=== PATIENT | female | born 1970 | race African-American/Black ===

== ENCOUNTER 2016-10-07 10:39 | Inpatient (IN) | payer BC ==
--- NOTE | ~2016-10-07 | DS ---
Discharge Summary [address] [place]. [address] NAME: JUAN FARIAS : 66 STATUS : DIS IN PAT#: [id number] AGE: 45 ADM/REG DATE : 10/07/16 MR#: [id number] REPORT SERV DATE: 10/16/16 DICTATED BY: DATE: REPORT STATUS : Draft TRANSCRIBED BY: MODL DATE: 10/15/16 ADMISSION DATE: 10/07/2016 DISCHARGE DATE: 10/15/2016 DISCHARGE DIAGNOSES: 1. Gluteal and sacral decubitus stage IV ulcers. 2. Paraplegia. 3. History of transverse myelitis. 4. History of urinary tract infections. 5. Diabetes mellitus type 2. 6. Hypothyroidism. 7. History of deep venous thrombosis with IVC filter. CONSULTING PHYSICIANS: Include: 1. Dr. Tejeda with General Surgery. 2. Dr. Glynn with Infectious Disease. DISCHARGE MEDICATIONS: Include: 1. Imuran 100 mg p.o. b.i.d. 2. Baclofen 20 mg p.o. 4 times daily. 3. Ancef 2 g IV q.8 hours x6 weeks. 4. Pepcid 20 mg p.o. at bedtime. 5. Flonase 2 sprays in each nostril once daily. 6. Eliquis 2.5 mg p.o. b.i.d. 7. Humibid DM 600 mg p.o. daily p.r.n. for cough. 8. Tofranil 25 mg p.o. b.i.d.. 9. Synthroid 112 mcg p.o. before breakfast. 10.Ditropan 10 mg p.o. t.i.d. 11.MiraLAX 1 packet p.o. daily p.r.n. for constipation. 12.Mucinex DM 1 tab p.o. daily maximum strength. 13.Ativan 1 mg p.o. daily p.r.n. for anxiety. 14.Tylenol 500 mg p.o. b.i.d. p.r.n. for pain or fever. 15.Zofran 8 mg p.o. q.12 hours p.r.n. for nausea and vomiting. IMAGING: Includes MRI of the lumbar spine. This demonstrated small gas loculus posterior soft tissues at the L5-S1 level identified. This may be the beginning of a small abscess formation, fusions from L3 through S1 appear intact and normal, canals intact and normal. 3 phase bone scan demonstrated positive exam involving the right femoral head compatible with osteomyelitis. For full H and P, please refer to Dr. Julius Angeles's dictation on 10/07/2016. HOSPITAL COURSE/PROBLEM LIST: 1. Gluteal and sacral stage IV decubitus ulcers. The patient has been receiving IV Ancef since admission. She is afebrile. White blood cell count is 3.8. The patient has been working on her nutrition. Pre-albumin on 10/11/2016 was 6, on 10/13/2016 it was Discharge Summary [address] [address] NAME: JUAN FARIAS : 66 STATUS : DIS IN [facility]#: [id number] AGE: 45 ADM/REG DATE : 10/07/16 MR#: [id number] REPORT SERV DATE: 10/16/16 DICTATED BY: DATE: REPORT STATUS : Draft TRANSCRIBED BY: MODL DATE: 10/15/16 up to 17.8, and today it was 25.2. Dr. Tejeda did a bedside debridement after admission which the patient had some acute blood loss. She was transfused several units of blood. Her H and H have been stable, currently is 10.9 and 37.5. The plan is for the patient to go home with home health and a PICC line and to receive 6 weeks' of IV Ancef per Dr. Glynn. She will follow up with him as an outpatient. She can also follow up with Dr. Tejeda as an outpatient as well. 2. Paraplegia. This is a chronic state induced by transverse myelitis. She will receive wound care at home for #1 as well as assistance with ADLs from Home Health. 3. Recurrent UTIs. The patient has a chronic Parsons catheter which is replaced every 2 weeks by Home Health. If she develops symptoms of UTI including dysuria, hematuria, frequency, and urgency, she is to follow up with her PCP. 4. Diabetes mellitus. The patient's blood glucose, the highest glucose Accu-Chek here was 137. She did not receive any insulin during her hospital course. I discontinued her Accu-Cheks yesterday. She will follow up with her primary care provider for further monitoring and management of this. The patient stated yesterday that she actually was prediabetic and not a type 2 diabetic, so again she can follow up with her primary care provider. No need for medication management at this time. 5. Hypothyroidism. The patient's TSH was 3.210, free T4 was 1.27 on 10/11/2016. We will continue the patient's home dose of Synthroid of 112 mcg p.o. daily and she can follow up with her primary care provider for further monitoring of lab work and management of this. 6. History of DVT with an IVC filter. We were holding the patient's Eliquis due to her blood loss from bedside debridement; however, she has had no signs of bleeding since that time. Her H and H are stable. I will discontinue her heparin subcutaneously and restart her Eliquis, and she can follow up with her primary care provider as needed. CLR/MODL Gerald Taylor NP / [id number] CC: Marlon Lares II, Jr., M.D. Hany A. Naggar, MD Hal Hill, M.D.
--- NOTE | ~2016-10-07 | HP ---
History And Physical [address] [place]. [address] NAME: JUAN FARIAS : 66 STATUS : ADM IN [facility]#: [id number] AGE: 45 ADM/REG DATE : 10/07/16 MR#: [id number] REPORT SERV DATE: 10/08/16 DICTATED BY: OSMAN GRAHAM DATE: 10/08/16 REPORT STATUS : Draft TRANSCRIBED BY: MODStacey DATE: 10/08/16 DATE OF ADMISSION: 10/07/2016 CHIEF COMPLAINT: Fevers. HISTORY OF PRESENT ILLNESS: The patient is a 45-year-old female with past medical history of transverse myelitis and fairly advanced sacral decubitus x3 who presents after being transported back and forth from Wound Care and noting that when she was being rotated she heard a pop type sound feeling and subsequently has had slight fevers. who takes care of wound noted fragments of possible bone in area and breakage of bone at that time and was concerned for possible infection as the patient had increased bleeding at that time. Symptoms have been sudden, constant, moderate severity. The patient does not have any pain symptoms due to her transverse myelitis but there has had slight oozing. reports that he is able to pull out occasional short pieces and worried that waiting till next appointment in the middle of the week may cause worsening of symptoms. The patient has denied any nausea, vomiting, has had subjective fevers but none currently documented. Initially, the patient reported she would not mind awaiting until clinic appointment; however, was adamant that she needed admission and evaluation sooner secondary to concern for possible osteo involvement. also reports that she is seeing Dr. Glynn and is requesting Infectious Disease evaluation also. There are no worsening symptoms or relieving symptoms. Evaluation of all wounds do show granulomatous tissue formation with healthy portions of wound, slight oozing at main site with what appears to be exposed bone. ADDITIONAL REVIEW OF SYSTEMS: Ten-point review of systems negative for that noted in the HPI. PAST MEDICAL HISTORY: Transverse myelitis with paraplegia, UTIs with suprapubic catheter, sarcoid with mediastinal lymphadenopathy, sacral decubitus ulcers x3, history of MRSA and osteomyelitis, hypertension, reflux, anxiety, diabetes, hypothyroidism, avascular necrosis of the hip and shoulders, left foot cellulitis, bronchiectasis, gout, DVT with IVC filter, uveitis, neuromyelitis optica, nephrolithiasis. SURGICAL HISTORY: Cholecystectomy, back surgery, IVC filter, carpal release, tubal ligation, ischiorectal abscess by Dr. Urbano and multiple surgical I and D, clear area and debridements of sacral wounds and hyperbaric chambers. ALLERGIES: CODEINE AND PERCOCET. SOCIAL HISTORY: , lives in [place], accompanied by . No alcohol or illicits. Used to work as [employer] at [employer]. FAMILY HISTORY: Diabetes and cancer. PHYSICAL EXAMINATION: VITAL SINGS: Blood pressure 104/72, temperature 98.9, pulse 117, respirations 22, O2 sats History And Physical [address] [address] NAME: JUAN FARIAS : 66 STATUS : ADM IN [facility]#: [id number] AGE: 45 ADM/REG DATE : 10/07/16 MR#: [id number] REPORT SERV DATE: 10/08/16 DICTATED BY: OSMAN GRAHAM DATE: 10/08/16 REPORT STATUS : Draft TRANSCRIBED BY: TOBY DATE: 10/08/16 99%. GENERAL: Pleasant but nontoxic, however, appears chronically ill but obese. EYES: No scleral icterus. EOMI. ENT: Nares patent. Tongue midline. RESPIRATORY: Clear to auscultation. No wheezes or rales. Equal chest expansion. CV: Currently regular rate. Initially, tachycardic. No rubs or gallops. Mild or just trace calf edema. GI: Soft, nontender. Suprapubic catheter with mild crusting at site. No yeast. Three large or full stage sacral ulcers present on arrival with healing granulomatous tissue with bone exposure and encompassing muscle fat layers also. LYMPH: No cervical, supraclavicular lymphadenopathy. HEME: No bleeding or bruising on skin except for pressure wounds. NEURO: Alert and oriented, does have bilateral lower extremity and waist paraplegia. PSYCH: Pleasant, appropriate mood and affect. LABS: Most recent wound culture positive for MSSA. CBC: WBC count 6.0 with H and H 7.1 and 24.8, platelets 502. Lactate sepsis 1.1. Flu screen negative. CMP, procalcitonin 0.9. Sodium 139, potassium 4.1, chloride 104, bicarb 25, BUN and creatinine 6 and 0.56, glucose 95, calcium of 8.4. LFTs within normal limits. ASSESSMENT: 1. Gluteal and sacral wounds multiple with osteo or likely osteo. 2. Fever. 3. Transverse myelitis with paraplegia. 4. Recent urinary tract infection history with suprapubic catheter. 5. Sarcoid with mediastinal lymphadenopathy diagnosed in 04. 6. Diabetes type 2. 7. Hypothyroidism. 8. Deep vein thrombosis history with IVC filter, on apixaban. PLAN: 1. For left gluteal sacral wound ED, discussed with Dr. Tejeda, culture positive for MSSA. We will start Unasyn based on culture as recently completed, IV antibiotics approximately three weeks ago. We will additionally consult Surgery and ID. Concern for repeat osteo and bone fragmentation per history. Bone fragments are not seen at this time as the wound has been cleaned prior but does appear to have exposure with healing granulomatous tissue. We will defer to surgery for wound care guidance and expertise. Additionally ID for antibiotics. 2. Fever treat underlying #1. 3. Transverse myelitis with paraplegia. Wound Care. We will order Specialty Bed. 4. Recent UTI history. UA currently okay. 5. Sarcoidosis with mediastinal lymphadenopathy diagnosis. No signs or symptoms of respiratory decompensation at this time. 6. Diabetes type 2, on sliding scale insulin. 7. Hypothyroidism, on replacement. 8. DVT history, on apixaban and IVC. Monitor H and H as the patient has had prior history of requiring multiple transfusions due to oozing sites. All questions answered. History And Physical [address] [address] NAME: JUAN FARIAS : 66 STATUS : ADM IN [facility]#: [id number] AGE: 45 ADM/REG DATE : 10/07/16 MR#: [id number] REPORT SERV DATE: 10/08/16 DICTATED BY: OSMAN GRAHAM DATE: 10/08/16 REPORT STATUS : Draft TRANSCRIBED BY: TOBY DATE: 10/08/16 Anticipate greater than two midnight inpatient stay. DDN/TOBY Osman Graham MD / [id number] CC: Marlon Villegas II, M.D.
[~2016-10-07 10:39] MED LIST: ACET500CAP PO; ALAVERT10 MG PO; AMB5 PO; ANUSOL HC SUPP1 SUPP PR; ASTELIN NAS; ATV.5 PO; AZASAN100 MG PO; BACDS PO; CARASPUDL PO; CARDCD240 PO; CELEBREX2 PO; CLARIT10 PO; CLARITD PO; CYMBALTA30 PO; DIL2TAB PO; DITRO5 PO; ELIQUIS 2.5 MG2.5 MG PO; FLONASE NAS; FLUCON1 PO; FLUCON150 PO; GLUCPH PO; HIPREX1 GM PO; IBU400 PO; IBU800 PO; IMU PO; LEVAQUIN750 MG PO; LEVOTHROID112 MCG PO; LEVOTHYROXIN112 MCG PO; LIOR10 PO; MACROBID PO; MACRODANTIN 10100 MG PO; MAXZIDE PO; METHOC500B PO; MUCINEX600 MG PO; NEUR300 PO; NEUR600 PO; NEXIUM40 PO; NORCO1 TA1 PO; NORCO1 TA2 PO; NORV10 PO; NORV5 PO; ORPHENADRINE 100 MG PO; ORPHENADRINE100 MG PO; P10 PO; PERCOCET1 TA4 PO; PLAQ200B PO; PR25 PO; PREDFORTE OPH; PREV30 PO; PROMETRIUM200 MG PO; PROVENTSOL INH; PULMICORT90 MCG INH; SINGULAIR1 PO; SUCR PO; SYN112 PO; THERGRANM PO; V5 PO; VERAMYST27.5 MCG NAS; VITC500 PO; XARELTO20 MG PO; ZANTAC 150 PO; ZANTAC150 MG PO; ZOFRAN8 PO; ZOSYN375 IV; [UNRECOGNIZED DRUG - OTHER]; [UNRECOGNIZED DRUG - OTHER] OR
[2016-10-07 11:22] LABS: BASOPHILS 0 %; EOSINOPHILS 0.8 %; EOSINOPHILS ABSOLUTE 0.05 10/3/uL (0.0-0.53); ER CBC TAT 0 Hrs 05 Mins; HEMATOCRIT 24.8 % (36.0-48.0); HEMOGLOBIN 7.1 g/dL (12.0-16.0); IMMATURE GRANULOCYTES 0.3 %; IMMATURE GRANULOCYTES ABSOLUTE 0.02 10/3/uL (0.0-0.11); LYMPHOCYTES 17.5 %; LYMPHOCYTES ABSOLUTE 1.04 10/3/uL (0.67-4.30); MANUAL DIFF NO %; MEAN CORPUS HGB CONC 28.6 g/dL (32.0-36.0); MEAN CORPUSCULAR HEMOGLOB 24.7 pg (26.0-34.0); MEAN CORPUSCULAR VOLUME 86.1 fL (80-100); MEAN PLATELET VOLUME 7.8 fL (9.2-13.0); MONOCYTES 9.1 %; MONOCYTES ABSOLUTE 0.54 10/3/uL (0.21-1.20); NEUTROPHILS 72.3 %; PLATELET COUNT 502 10/3/uL (150-400); RBC DISTRIBUTION WIDTH 20.5 % (12.0-16.0); RED CELL COUNT 2.88 10/6/uL (4.0-5.6)
[2016-10-07 11:39] LABS: A/G RATIO 0.3 (0.7-1.9); ALBUMIN 1.9 G/DL (3.5-5.0); ALKALINE PHOSPHATASE 103 U/L (45-117); CALCIUM, SERUM 8.4 MG/DL (8.5-10.4); CHLORIDE, SERUM 104 MMOL/L (96-112); CO2 (CARBON DIOXIDE) 25 MMOL/L (24-34); CREATININE 0.56 MG/DL (0.55-1.02); GFR AFRICAN AMERICAN 129 ML/MIN (>=60); GFR NON AFRICAN AMERICAN 111 ML/MIN (>=60); GLOBULIN 5.5 G/DL (2.5-4.1); GLUCOSE, SERUM 95 MG/DL (60-99); POTASSIUM, SERUM 4.1 MMOL/L (3.5-5.3); SGOT(AST) 9 U/L (5-40); SGPT(ALT) 8 U/L (5-65); SODIUM, SERUM 139 MMOL/L (135-148); TOTAL BILIRUBIN 0.3 MG/DL (0-1.2); TOTAL PROTEIN 7.4 G/DL (6.0-8.5)
[2016-10-07 11:40] LABS: BUN (BLOOD UREA NITROGEN) 6 MG/DL (6-23); LACTATE 1.1 MMOL/L (0.3-2.4)
[2016-10-07 12:03] LABS: INFLUENZA A SCREEN NEGATIVE (NEGATIVE); INFLUENZA B SCREEN NEGATIVE (NEGATIVE)
[2016-10-07] MEDS ORDERED: TOF25 PO (14:39)
[2016-10-07] MEDS ORDERED: DITROPAN XL10 MG PO (14:39)
[2016-10-07] MEDS ORDERED: SYN112 PO (14:39)
[2016-10-07] MEDS ORDERED: AZASAN100 MG PO (14:40)
[2016-10-07] MEDS ORDERED: BACLOFEN20 MG PO (14:40)
[2016-10-07] MEDS ORDERED: FLONASE NAS (14:41)
[2016-10-07] MEDS ORDERED: MUCINEX DM MAX PO (14:42)
[2016-10-07] MEDS ORDERED: ZANTAC 150 PO (14:43)
[2016-10-07] MEDS ORDERED: ELIQUIS 2.5 MG2.5 MG PO (14:43)
[2016-10-07] MEDS ORDERED: ATV1 PO (14:43)
[2016-10-07] MEDS ORDERED: ZOFRAN8 PO (14:44)
[2016-10-07] MEDS ORDERED: ACET500CAP PO (14:44)
[2016-10-07] MEDS ORDERED: GENTAMICIN IRRIG (14:47)
[2016-10-07 19:00] LABS: PROCALCITONIN 0.09 ng/mL (<0.5)
[2016-10-08 05:42] LABS: A/G RATIO 0.4 (0.7-1.9); ALBUMIN 1.7 G/DL (3.5-5.0); BUN (BLOOD UREA NITROGEN) 7 MG/DL (6-23); CALCIUM, SERUM 7.9 MG/DL (8.5-10.4); CHLORIDE, SERUM 109 MMOL/L (96-112); CO2 (CARBON DIOXIDE) 23 MMOL/L (24-34); CREATININE 0.54 MG/DL (0.55-1.02); GFR AFRICAN AMERICAN 130 ML/MIN (>=60); GFR NON AFRICAN AMERICAN 112 ML/MIN (>=60); GLOBULIN 4.8 G/DL (2.5-4.1); GLUCOSE, SERUM 85 MG/DL (60-99); POTASSIUM, SERUM 3.8 MMOL/L (3.5-5.3); SGOT(AST) 11 U/L (5-40); SGPT(ALT) 9 U/L (5-65); SODIUM, SERUM 142 MMOL/L (135-148); TOTAL PROTEIN 6.5 G/DL (6.0-8.5)
[2016-10-08 05:43] LABS: ALKALINE PHOSPHATASE 88 U/L (45-117); BASOPHILS 0.2 %; BASOPHILS ABSOLUTE 0.01 10/3/uL (0.0-0.16); EOSINOPHILS 1.4 %; EOSINOPHILS ABSOLUTE 0.06 10/3/uL (0.0-0.53); HEMATOCRIT 22.6 % (36.0-48.0); IMMATURE GRANULOCYTES 0.5 %; IMMATURE GRANULOCYTES ABSOLUTE 0.02 10/3/uL (0.0-0.11); LYMPHOCYTES 28.8 %; LYMPHOCYTES ABSOLUTE 1.24 10/3/uL (0.67-4.30); MEAN CORPUS HGB CONC 28.3 g/dL (32.0-36.0); MEAN CORPUSCULAR HEMOGLOB 24.5 pg (26.0-34.0); MEAN CORPUSCULAR VOLUME 86.6 fL (80-100); MEAN PLATELET VOLUME 8.2 fL (9.2-13.0); MONOCYTES 9.3 %; NEUTROPHILS 59.8 %; NEUTROPHILS ABSOLUTE 2.58 10/3/uL (2.02-8.40); PLATELET COUNT 478 10/3/uL (150-400); RBC DISTRIBUTION WIDTH 21.1 % (12.0-16.0); RED CELL COUNT 2.61 10/6/uL (4.0-5.6); TOTAL BILIRUBIN 1.2 MG/DL (0-1.2); WHITE BLOOD CELLS 4.3 10/3/uL (4.5-10.5)
[2016-10-08 05:48] LABS: HEMOGLOBIN 6.4 g/dL (12.0-16.0); MANUAL DIFF NO %
[2016-10-08 06:38] LABS: ANISOCYTOSIS 1+ (5-10/OIF) (0-5/OIF); PLATELET ESTIMATE SLT INC (ADEQUATE); POLYCHROMASIA 1+ (2-5/OIF) (0-1/OIF)
[2016-10-08 11:09] LABS: PREALBUMIN 6.2 MG/DL (17.0-43.0)
[2016-10-08 16:13] LABS: HEMATOCRIT 28.5 % (36.0-48.0); HEMOGLOBIN 8.4 g/dL (12.0-16.0)
[2016-10-09 06:33] LABS: BASOPHILS 0.2 %; BASOPHILS ABSOLUTE 0.01 10/3/uL (0.0-0.16); EOSINOPHILS 1.3 %; EOSINOPHILS ABSOLUTE 0.06 10/3/uL (0.0-0.53); HEMATOCRIT 30.4 % (36.0-48.0); HEMOGLOBIN 9.2 g/dL (12.0-16.0); IMMATURE GRANULOCYTES 0.7 %; IMMATURE GRANULOCYTES ABSOLUTE 0.03 10/3/uL (0.0-0.11); LYMPHOCYTES 25.4 %; LYMPHOCYTES ABSOLUTE 1.15 10/3/uL (0.67-4.30); MANUAL DIFF NO %; MEAN CORPUS HGB CONC 30.3 g/dL (32.0-36.0); MEAN CORPUSCULAR HEMOGLOB 26.2 pg (26.0-34.0); MEAN CORPUSCULAR VOLUME 86.6 fL (80-100); MEAN PLATELET VOLUME 8.3 fL (9.2-13.0); MONOCYTES 7.5 %; MONOCYTES ABSOLUTE 0.34 10/3/uL (0.21-1.20); NEUTROPHILS 64.9 %; NEUTROPHILS ABSOLUTE 2.93 10/3/uL (2.02-8.40); PLATELET COUNT 464 10/3/uL (150-400); RBC DISTRIBUTION WIDTH 19.1 % (12.0-16.0); RED CELL COUNT 3.51 10/6/uL (4.0-5.6); WHITE BLOOD CELLS 4.5 10/3/uL (4.5-10.5)
[2016-10-09 06:42] LABS: BUN (BLOOD UREA NITROGEN) 7 MG/DL (6-23); CALCIUM, SERUM 8.4 MG/DL (8.5-10.4); CHLORIDE, SERUM 108 MMOL/L (96-112); CO2 (CARBON DIOXIDE) 24 MMOL/L (24-34); GFR AFRICAN AMERICAN 134 ML/MIN (>=60); GFR NON AFRICAN AMERICAN 115 ML/MIN (>=60); GLUCOSE, SERUM 94 MG/DL (60-99); POTASSIUM, SERUM 3.7 MMOL/L (3.5-5.3); SODIUM, SERUM 142 MMOL/L (135-148)
[2016-10-10 05:01] LABS: BASOPHILS 0.3 %; BASOPHILS ABSOLUTE 0.01 10/3/uL (0.0-0.16); EOSINOPHILS 1.5 %; EOSINOPHILS ABSOLUTE 0.05 10/3/uL (0.0-0.53); HEMATOCRIT 31.2 % (36.0-48.0); HEMOGLOBIN 9.2 g/dL (12.0-16.0); IMMATURE GRANULOCYTES 0.6 %; IMMATURE GRANULOCYTES ABSOLUTE 0.02 10/3/uL (0.0-0.11); LYMPHOCYTES 28.4 %; LYMPHOCYTES ABSOLUTE 0.94 10/3/uL (0.67-4.30); MEAN CORPUS HGB CONC 29.5 g/dL (32.0-36.0); MEAN CORPUSCULAR HEMOGLOB 25.5 pg (26.0-34.0); MEAN CORPUSCULAR VOLUME 86.4 fL (80-100); MEAN PLATELET VOLUME 8.5 fL (9.2-13.0); MONOCYTES 7.6 %; MONOCYTES ABSOLUTE 0.25 10/3/uL (0.21-1.20); NEUTROPHILS 61.6 %; NEUTROPHILS ABSOLUTE 2.04 10/3/uL (2.02-8.40); PLATELET COUNT 475 10/3/uL (150-400); RBC DISTRIBUTION WIDTH 18.8 % (12.0-16.0); RED CELL COUNT 3.61 10/6/uL (4.0-5.6); WHITE BLOOD CELLS 3.3 10/3/uL (4.5-10.5)
[2016-10-10 05:03] LABS: MANUAL DIFF NO %
[2016-10-10 05:12] LABS: BUN (BLOOD UREA NITROGEN) 7 MG/DL (6-23); CALCIUM, SERUM 8.6 MG/DL (8.5-10.4); CHLORIDE, SERUM 107 MMOL/L (96-112); CO2 (CARBON DIOXIDE) 25 MMOL/L (24-34); CREATININE 0.53 MG/DL (0.55-1.02); GFR AFRICAN AMERICAN 131 ML/MIN (>=60); GFR NON AFRICAN AMERICAN 113 ML/MIN (>=60); GLUCOSE, SERUM 107 MG/DL (60-99); POTASSIUM, SERUM 3.8 MMOL/L (3.5-5.3); SODIUM, SERUM 142 MMOL/L (135-148)
[2016-10-11 06:08] LABS: BUN (BLOOD UREA NITROGEN) 8 MG/DL (6-23); CALCIUM, SERUM 8.6 MG/DL (8.5-10.4); CHLORIDE, SERUM 108 MMOL/L (96-112); CO2 (CARBON DIOXIDE) 25 MMOL/L (24-34); CREATININE 0.53 MG/DL (0.55-1.02); FREE T4 1.27 NG/DL (0.76-1.46); GFR AFRICAN AMERICAN 131 ML/MIN (>=60); GFR NON AFRICAN AMERICAN 113 ML/MIN (>=60); GLUCOSE, SERUM 92 MG/DL (60-99); POTASSIUM, SERUM 4.1 MMOL/L (3.5-5.3); SODIUM, SERUM 142 MMOL/L (135-148)
[2016-10-11 06:33] LABS: BASOPHILS 0.8 %; BASOPHILS ABSOLUTE 0.02 10/3/uL (0.0-0.16); EOSINOPHILS 2.7 %; EOSINOPHILS ABSOLUTE 0.07 10/3/uL (0.0-0.53); HEMATOCRIT 32.3 % (36.0-48.0); HEMOGLOBIN 9.8 g/dL (12.0-16.0); IMMATURE GRANULOCYTES 0.8 %; IMMATURE GRANULOCYTES ABSOLUTE 0.02 10/3/uL (0.0-0.11); LYMPHOCYTES 31.9 %; LYMPHOCYTES ABSOLUTE 0.84 10/3/uL (0.67-4.30); MEAN CORPUS HGB CONC 30.3 g/dL (32.0-36.0); MEAN CORPUSCULAR HEMOGLOB 26.8 pg (26.0-34.0); MEAN CORPUSCULAR VOLUME 88.3 fL (80-100); MEAN PLATELET VOLUME 8.4 fL (9.2-13.0); MONOCYTES 8.4 %; MONOCYTES ABSOLUTE 0.22 10/3/uL (0.21-1.20); NEUTROPHILS 55.4 %; NEUTROPHILS ABSOLUTE 1.46 10/3/uL (2.02-8.40); PLATELET COUNT 524 10/3/uL (150-400); RBC DISTRIBUTION WIDTH 18.8 % (12.0-16.0); RED CELL COUNT 3.66 10/6/uL (4.0-5.6); WHITE BLOOD CELLS 2.6 10/3/uL (4.5-10.5)
[2016-10-11 06:38] LABS: MANUAL DIFF NO %
[2016-10-11 06:59] LABS: ANISOCYTOSIS 1+ (5-10/OIF) (0-5/OIF); PLATELET ESTIMATE SLT INC (ADEQUATE); TEARDROP SHAPED RBCS OCC (0-2/OIF)
[2016-10-12 07:07] LABS: BASOPHILS 0.3 %; BASOPHILS ABSOLUTE 0.01 10/3/uL (0.0-0.16); EOSINOPHILS 2.4 %; EOSINOPHILS ABSOLUTE 0.07 10/3/uL (0.0-0.53); HEMATOCRIT 33.8 % (36.0-48.0); HEMOGLOBIN 9.9 g/dL (12.0-16.0); IMMATURE GRANULOCYTES 0.7 %; IMMATURE GRANULOCYTES ABSOLUTE 0.02 10/3/uL (0.0-0.11); LYMPHOCYTES ABSOLUTE 1.03 10/3/uL (0.67-4.30); MEAN CORPUS HGB CONC 29.3 g/dL (32.0-36.0); MEAN CORPUSCULAR HEMOGLOB 25.4 pg (26.0-34.0); MEAN CORPUSCULAR VOLUME 86.7 fL (80-100); MEAN PLATELET VOLUME 8.3 fL (9.2-13.0); MONOCYTES 6.8 %; NEUTROPHILS 54.8 %; NEUTROPHILS ABSOLUTE 1.61 10/3/uL (2.02-8.40); PLATELET COUNT 516 10/3/uL (150-400); RBC DISTRIBUTION WIDTH 19.1 % (12.0-16.0); WHITE BLOOD CELLS 2.9 10/3/uL (4.5-10.5)
[2016-10-12 07:09] LABS: MANUAL DIFF NO %
[2016-10-12 07:21] LABS: CALCIUM, SERUM 8.7 MG/DL (8.5-10.4); CHLORIDE, SERUM 107 MMOL/L (96-112); CO2 (CARBON DIOXIDE) 25 MMOL/L (24-34); CREATININE 0.61 MG/DL (0.55-1.02); GFR AFRICAN AMERICAN 125 ML/MIN (>=60); GFR NON AFRICAN AMERICAN 108 ML/MIN (>=60); GLUCOSE, SERUM 88 MG/DL (60-99); POTASSIUM, SERUM 4.2 MMOL/L (3.5-5.3); SODIUM, SERUM 143 MMOL/L (135-148)
[2016-10-12 07:22] LABS: BUN (BLOOD UREA NITROGEN) 12 MG/DL (6-23)
[2016-10-13 06:32] LABS: BASOPHILS 0.3 %; BASOPHILS ABSOLUTE 0.01 10/3/uL (0.0-0.16); EOSINOPHILS 2.5 %; EOSINOPHILS ABSOLUTE 0.08 10/3/uL (0.0-0.53); HEMATOCRIT 34.3 % (36.0-48.0); HEMOGLOBIN 10.1 g/dL (12.0-16.0); IMMATURE GRANULOCYTES 0.3 %; IMMATURE GRANULOCYTES ABSOLUTE 0.01 10/3/uL (0.0-0.11); LYMPHOCYTES 32.5 %; LYMPHOCYTES ABSOLUTE 1.04 10/3/uL (0.67-4.30); MANUAL DIFF NO %; MEAN CORPUS HGB CONC 29.4 g/dL (32.0-36.0); MEAN CORPUSCULAR HEMOGLOB 25.8 pg (26.0-34.0); MEAN CORPUSCULAR VOLUME 87.7 fL (80-100); MEAN PLATELET VOLUME 8.3 fL (9.2-13.0); MONOCYTES 7.5 %; MONOCYTES ABSOLUTE 0.24 10/3/uL (0.21-1.20); NEUTROPHILS 56.9 %; NEUTROPHILS ABSOLUTE 1.82 10/3/uL (2.02-8.40); PLATELET COUNT 500 10/3/uL (150-400); RBC DISTRIBUTION WIDTH 19.1 % (12.0-16.0); RED CELL COUNT 3.91 10/6/uL (4.0-5.6); WHITE BLOOD CELLS 3.2 10/3/uL (4.5-10.5)
[2016-10-13 06:51] LABS: ALKALINE PHOSPHATASE 84 U/L (45-117); BUN (BLOOD UREA NITROGEN) 13 MG/DL (6-23); CALCIUM, SERUM 8.9 MG/DL (8.5-10.4); CHLORIDE, SERUM 106 MMOL/L (96-112); CO2 (CARBON DIOXIDE) 25 MMOL/L (24-34); CREATININE 0.61 MG/DL (0.55-1.02); GFR AFRICAN AMERICAN 125 ML/MIN (>=60); GFR NON AFRICAN AMERICAN 108 ML/MIN (>=60); GLUCOSE, SERUM 94 MG/DL (60-99); POTASSIUM, SERUM 4.4 MMOL/L (3.5-5.3); PREALBUMIN 17.8 MG/DL (17.0-43.0); SGOT(AST) 13 U/L (5-40); SGPT(ALT) 9 U/L (5-65); SODIUM, SERUM 141 MMOL/L (135-148); TOTAL PROTEIN 6.9 G/DL (6.0-8.5)
[2016-10-13 06:54] LABS: A/G RATIO 0.5 (0.7-1.9); ALBUMIN 2.2 G/DL (3.5-5.0); GLOBULIN 4.7 G/DL (2.5-4.1); TOTAL BILIRUBIN 0.2 MG/DL (0-1.2)
[2016-10-15 06:58] LABS: BASOPHILS 0.3 %; BASOPHILS ABSOLUTE 0.01 10/3/uL (0.0-0.16); EOSINOPHILS 2.1 %; EOSINOPHILS ABSOLUTE 0.08 10/3/uL (0.0-0.53); HEMATOCRIT 37.5 % (36.0-48.0); HEMOGLOBIN 10.9 g/dL (12.0-16.0); IMMATURE GRANULOCYTES 0.5 %; IMMATURE GRANULOCYTES ABSOLUTE 0.02 10/3/uL (0.0-0.11); LYMPHOCYTES 31.3 %; LYMPHOCYTES ABSOLUTE 1.19 10/3/uL (0.67-4.30); MEAN CORPUS HGB CONC 29.1 g/dL (32.0-36.0); MEAN CORPUSCULAR HEMOGLOB 26.7 pg (26.0-34.0); MEAN PLATELET VOLUME 8.2 fL (9.2-13.0); MONOCYTES 7.6 %; MONOCYTES ABSOLUTE 0.29 10/3/uL (0.21-1.20); NEUTROPHILS 58.2 %; NEUTROPHILS ABSOLUTE 2.21 10/3/uL (2.02-8.40); PLATELET COUNT 489 10/3/uL (150-400); RBC DISTRIBUTION WIDTH 19.6 % (12.0-16.0); RED CELL COUNT 4.08 10/6/uL (4.0-5.6); WHITE BLOOD CELLS 3.8 10/3/uL (4.5-10.5)
[2016-10-15 07:07] LABS: MANUAL DIFF NO %; MEAN CORPUSCULAR VOLUME 91.9 fL (80-100)
[2016-10-15 07:26] LABS: BUN (BLOOD UREA NITROGEN) 13 MG/DL (6-23); CALCIUM, SERUM 9.5 MG/DL (8.5-10.4); CHLORIDE, SERUM 101 MMOL/L (96-112); CO2 (CARBON DIOXIDE) 28 MMOL/L (24-34); CREATININE 0.62 MG/DL (0.55-1.02); GFR AFRICAN AMERICAN 124 ML/MIN (>=60); GFR NON AFRICAN AMERICAN 107 ML/MIN (>=60); GLUCOSE, SERUM 100 MG/DL (60-99); POTASSIUM, SERUM 4.4 MMOL/L (3.5-5.3); PREALBUMIN 25.2 MG/DL (17.0-43.0); SGOT(AST) 15 U/L (5-40); SGPT(ALT) 10 U/L (5-65); SODIUM, SERUM 139 MMOL/L (135-148); TOTAL BILIRUBIN 0.2 MG/DL (0-1.2); TOTAL PROTEIN 7.7 G/DL (6.0-8.5)
[2016-10-15 07:27] LABS: A/G RATIO 0.5 (0.7-1.9); ALBUMIN 2.7 G/DL (3.5-5.0); ALKALINE PHOSPHATASE 100 U/L (45-117)
[2016-10-15] MEDS ORDERED: CEFAZ1 IM (19:36)
[2017-01-02] MEDS ORDERED: ZOFRAN8 PO (19:42)
[2017-01-02] MEDS ORDERED: NASONEX NAS (19:42)
[2017-01-02] MEDS ORDERED: BACLOFEN20 MG PO (19:43)
[2017-01-02] MEDS ORDERED: DITROPAN XL10 MG PO (19:44)
[2017-01-02] MEDS ORDERED: ELIQUIS 2.5 MG2.5 MG PO (19:46)
[2017-01-02] MEDS ORDERED: PRENAVITE PR PO (19:47)
[2017-01-02] MEDS ORDERED: ATV1 PO (19:47)
[2017-01-02] MEDS ORDERED: ZANTAC 150 PO (19:48)
[2017-01-02] MEDS ORDERED: SYN112 PO (19:48)
[2017-01-02] MEDS ORDERED: NORCO1 TAB PO (19:49)
[2017-01-02] MEDS ORDERED: IMU PO (19:49)
[2017-01-02] MEDS ORDERED: ACET500CAP PO (19:50)
[2017-01-02] MEDS ORDERED: TOF25 PO (19:50)
[2017-01-02] MEDS ORDERED: SINGULAIR1 PO (19:50)
[2017-01-02] MEDS ORDERED: GENTAMICIN IRRIG (19:51)
[2017-05-16] MEDS ORDERED: ENDOCET1 TA3 PO (12:19)
[2017-05-16] MEDS ORDERED: ENABLEX15 PO (12:20)
[2017-05-16] MEDS ORDERED: NASOCORT (12:21)
[2017-05-16] MEDS ORDERED: PROTONIX PO (12:22)
== END 2016-10-15 20:28 | disposition home or self-care (01) | DRG 592 ==
LOC: ER 10:39 → 4SO 16:35
PROVIDERS: Nurse Practitioner; Nurse Practitioner Acute Care; Student in an Organized Health Care Education/Training Program
PROC: 0HD6XZZ Extraction of Back Skin, External Approach (ICD-10-PCS; principal; 2016-10-08)
PROC: 02HV33Z Insertion of Infusion Device into Superior Vena Cava, Percutaneous Approach (ICD-10-PCS; 2016-10-15)
DX: L89.154 Pressure ulcer of sacral region, stage 4 (principal); E43 Unspecified severe protein-calorie malnutrition; G37.3 Acute transverse myelitis in demyelinating disease of central nervous system; G82.20 Paraplegia, unspecified; D62 Acute posthemorrhagic anemia; E03.9 Hypothyroidism, unspecified; E11.9 Type 2 diabetes mellitus without complications; Z86.718 Personal history of other venous thrombosis and embolism; I10 Essential (primary) hypertension; K21.9 Gastro-esophageal reflux disease without esophagitis; M10.9 Gout, unspecified; D86.89 Sarcoidosis of other sites; Z87.440 Personal history of urinary (tract) infections
CPT/HCPCS: 36415; 36569; 72158; 78315; 80048; 80053; 82962; 83605; 83735; 84134; 84145; 84439; 84443; 85014; 85018; 85025; 86140; 86850; 86900; 86901; 86920; 87040; 87804; 97161-GP; 99285; A9270-GY; A9561; A9577; C1751; J0295; J0690; J1940; J2405; J2800; J7500; P9016

== ENCOUNTER 2017-01-02 20:36 | Inpatient (IN) | payer BC ==
--- NOTE | ~2017-01-02 | DS ---
Discharge Summary [facility] [address] [place]. [address] NAME: JUAN FARIAS : 66 STATUS : DIS IN PAT#: [id number] AGE: 46 ADM/REG DATE : 01/02/17 MR#: [id number] REPORT SERV DATE: 01/08/17 DICTATED BY: DATE: REPORT STATUS : Draft TRANSCRIBED BY: MODL DATE: 01/07/17 ADMISSION DATE: 01/02/2017 DISCHARGE DATE: 01/07/2017 DISCHARGE DIAGNOSES: 1. Febrile illness, resolved. Temp 98.3 degrees Fahrenheit. 2. Sacral decubitus that were chronic, present on arrival. She is followed by Dr. Theo Tejeda, she has an appointment with him on Saturday of this week. 3. Sepsis. Blood cultures were negative. The patient is afebrile. We will continue Septra p.o. for methicillin-resistant Staphylococcus aureus, her urine, and decubitus ulcer. 4. Urinary tract infection that is methicillin-resistant Staphylococcus aureus positive. She has been improving on vancomycin IV. We will continue her on Septra as mentioned above per Dr. Pancho Glynn, with Infectious Disease. She did have a culture that was positive for Acinetobacter that was carbapenem resistant; however, this is likely contamination according to Dr. Glynn and we will not treat this at this time. 5. Chronic suprapubic catheter. This was removed due to leakage per Dr. Kauffman. A Parsons catheter was placed. She will follow up with him in the office in two weeks as an outpatient for further monitoring and management. 6. Diabetes mellitus type 2. Her hemoglobin A1c is 5.7, it is diet controlled. She will follow up with her primary care provider for further monitoring and management. 7. Anemia of chronic disease. The patient's serum iron was 18, TIBC was 130, ferritin was 470. We placed the patient on IV iron replacement. We know that ferritin was high this is likely acute phase reactant due to acute illness; however, the patient is followed by Dr. Kim as an outpatient. She will follow up with him p.r.n. She states that she takes vitamins with iron in them and that he was not replacing her iron as an outpatient other than these vitamins. Again, she will follow up with him p.r.n. The patient has a history of deep venous thrombosis with IVC filter and is on Eliquis, we will continue this. 8. Hypertension, controlled. 9. Hypothyroidism. I will continue the patient on Synthroid p.o. This discharge took greater than 30 minutes due to consultation with consulting physicians as well as medication reconciliation and case management coordination of home health care. DICTATED BY: RAFAEL De La Garza/TOBY Gerald Taylor NP / [id number] Discharge Summary [address] [address] NAME: JUAN FARIAS : 66 STATUS : DIS IN PAT#: [id number] AGE: 46 ADM/REG DATE : 01/02/17 MR#: [id number] REPORT SERV DATE: 01/08/17 DICTATED BY: DATE: REPORT STATUS : Draft TRANSCRIBED BY: TOBY DATE: 01/07/17 CC: MD Theo Beckford II, M.D.
--- NOTE | ~2017-01-02 | CN ---
Consultation Report [address] [address] NAME: JUAN FARIAS : 66 STATUS : ADM IN PAT#: [id number] AGE: 46 ADM/REG DATE : 01/02/17 MR#: [id number] REPORT SERV DATE: 01/04/17 DICTATED BY: BRIAN SHANNON III DATE: 01/04/17 REPORT STATUS : Draft TRANSCRIBED BY: MODL DATE: 01/04/17 CONSULT DATE OF CONSULTATION: REASON FOR CONSULTATION: Nonfunctioning SP tube. HISTORY OF PRESENT ILLNESS: Ms Farias is a 46-year-old black female, paraplegia secondary to transverse myelitis. Her bladder was managed with SP tube, that reportedly was changed, but has not been functioning properly since. She is admitted because of this. PAST MEDICAL HISTORY: Transverse myelitis, numbness from the waist down, neuropathies in the lower extremities, chronic sinus problems, history of DVT, sarcoidosis, arthritis, gastroesophageal reflux disease, incontinence, sacral decubitus, frequent UTIs, uterine ablation, hypothyroidism, diabetes, anxiety, anemia, autoimmune transverse myelitis. PAST SURGICAL HISTORY: IVC filter, tubal ligation, cholecystectomy, suprapubic tube placement, tonsillectomy and adenoidectomy, uterine ablation, bilateral carpal tunnels, lung biopsy, spinal fusion, right hip decompression, colonoscopy. MEDICATIONS: Reviewed. ALLERGIES: SHE ALLERGIC TO CODEINE AND OXYCODONE. PHYSICAL EXAMINATION: The patient has a suprapubic tube with minimal amount of urine in the tubing. It appears because of the length of the catheter external to the patient, that most likely is not completely in the bladder. ASSESSMENT: Nonfunctioning SP tube. PLAN: We will have the SP tube changed and if unsuccessful, place a urethral catheter. PH/MODL Brian Shannon III, M.D. / [id number] CC: Omi Richardson MD Consultation Report [address] [place]. [address] NAME: JUAN FARIAS : 66 STATUS : ADM IN PAT#: [id number] AGE: 46 ADM/REG DATE : 01/02/17 MR#: [id number] REPORT SERV DATE: 01/04/17 DICTATED BY: BRIAN SHANNON III DATE: 01/04/17 REPORT STATUS : Draft TRANSCRIBED BY: TOBY DATE: 01/04/17 Theo Zamudio II, M.D.
--- NOTE | ~2017-01-02 | HP ---
History And Physical [address] [facility] [place]. [address] NAME: JUAN FARIAS : 66 STATUS : ADM IN [facility]#: [id number] AGE: 46 ADM/REG DATE : 01/02/17 MR#: [id number] REPORT SERV DATE: 01/04/17 DICTATED BY: GOMEZ SANDHU DATE: 01/02/17 REPORT STATUS : Draft TRANSCRIBED BY: MODL DATE: 01/02/17 DATE OF ADMISSION: 01/02/2017 CHIEF COMPLAINT: Infected sacral decubitus ulcers and blocked suprapubic catheter. HISTORY OF PRESENT ILLNESS: This is a 46-year-old female, who was sent by her home health nurse to the emergency room at [facility] for the above-mentioned complaint. She has a history of transverse myelitis and paraplegia, and has been battling bilateral sacral decubitus ulcers since 2013. History is obtained from the patient and reviewing data available on the [facility]point MD system. Ms. Farias is a very pleasant 46-year-old, who is a very good historian, who has been very compliant with her wound care visits and other treatments. She sees Dr. Tejeda for her wound care, who debrided her about a few days ago. Unfortunately during this time, her suprapubic catheter has been giving her trouble, this has been changed out at least three times in the last couple of days. Today, her home health nurse visited and changed it yet another time, but as soon as she left, the patient found her bed to be completely drenched. She called home health nurse back, who came back, cleaned it out again, and advised her to go back to the emergency room to be evaluated. In the emergency room, the suprapubic catheter was cleaned out, but initial workup revealed infected sacral decubitus ulcers with malodorous discharge along with febrile illness, leukocytosis, and she met criteria for sepsis. She also had a urinary tract infection. Hospitalist Service is asked to admit her for further evaluation and treatment. At the time of my evaluation, she denied any chest pain, palpitations, or orthopnea. She did not have any cough, hemoptysis, night sweats, or weight loss. She has not had any recent falls or loss of consciousness. No history of fevers or chills at home. No history of nausea, vomiting, diarrhea, hematemesis, hematochezia, or hematuria. No other history of recent travel or exposures other than those mentioned above. PAST MEDICAL HISTORY: Significant for history of transverse myelitis with paraplegia. She has neuromyelitis optica. She has diabetes mellitus, hypothyroidism, history of DVT with IVC filter placement, essential hypertension, sarcoidosis with mediastinal lymphadenopathy, history of MRSA osteomyelitis in the past. She also has a history of gout, history of avascular necrosis of the hip and shoulder. SOCIAL HISTORY: She does not smoke, drink, or use recreational drugs. FAMILY HISTORY: Noncontributory. MEDICATIONS: Her medications at home were reviewed by me in the chart today and reordered by me. REVIEW OF SYSTEMS: As in history of present illness. All other systems were reviewed in detail and are quite History And Physical [address] [place]. [address] NAME: JUAN FARIAS : 66 STATUS : ADM IN [facility]#: [id number] AGE: 46 ADM/REG DATE : 01/02/17 MR#: [id number] REPORT SERV DATE: 01/04/17 DICTATED BY: GOMEZ SANDHU DATE: 01/02/17 REPORT STATUS : Draft TRANSCRIBED BY: TOBY DATE: 01/02/17 unremarkable. PHYSICAL EXAMINATION: GENERAL: This is a pleasant 46-year-old, not in any acute distress. HEENT: Her head is atraumatic, normocephalic. She is alert, awake, and oriented to time, place, and person. Pupils are equal, reacting to light and accommodating. External ocular muscles are intact. Membranes are moist and pink. Sclerae are nonicteric. NECK: Supple with no jugular venous distention, lymphadenopathy, or thyromegaly. LUNGS: Clear to auscultation with no wheezes, rubs, or crackles. HEART: Heart sounds were regular with no murmurs, rubs, or gallops. ABDOMEN: Soft, nontender. Bowel sounds are present. EXTREMITIES: Showed no cyanosis, clubbing, or edema. She has transverse myelitis and paraplegia. She has bilateral sacral decubitus ulcers and buttock ulcers, which appear to be infected with purulent-appearing discharge and foul order. The right side appears to be clean. VITAL SIGNS: Today showed a temperature of 99.5, pulse 145, respirations 30 a minute, blood pressure was 98/60 upon arrival, and oxygen saturations were 99% on room air. LABORATORY DATA: Reviewed on the Pinpoint MD system showed normal CMP with a blood glucose of 120. CBC showed a white blood cell count of 9300, hemoglobin was 9.2, hematocrit 27.9, platelet count was 445,000. Influenza A and B were negative today and urinalysis showed large leukocyte esterase, nitrite was negative, there were greater than 26 wbc's and a few bacteria. Today, her procalcitonin was 0.05. Films of the chest x-ray were reviewed by me on the PACS today and interpreted by me. Per my interpretation, normal bony architecture with no cardiomegaly. Lung lim were clear with no lobar consolidations or pleural effusions. Bilateral adenopathy which is old. IMPRESSION: 1. Febrile illness. 2. Infected sacral decubitus ulcer. 3. Sepsis by criteria. 4. Urinary tract infection. 5. Chronic suprapubic catheter with obstruction. 6. Diabetes mellitus type 2. 7. Transverse myelitis with paraplegia. 8. Hypothyroidism. 9. Essential hypertension. 10.Sarcoidosis. 11.History of DVT with IVC filter. 12.History of methicillin-resistant Staphylococcus aureus osteomyelitis. 13.Gout. 14.History of avascular necrosis of the hip and shoulder. 15.Neuromyelitis optica. PLAN: We will admit Ms. Farias to the Hospitalist Service with telemetry for close monitoring. After cultures are obtained, we will start her on empiric IV antibiotics, follow Gram stain cultures, and proceed accordingly. We will get Dr. Tejeda and Wound Care to History And Physical [address] [address] NAME: JUAN FARIAS : 66 STATUS : ADM IN [facility]#: [id number] AGE: 46 ADM/REG DATE : 01/02/17 MR#: [id number] REPORT SERV DATE: 01/04/17 DICTATED BY: GOMEZ SANDHU DATE: 01/02/17 REPORT STATUS : Draft TRANSCRIBED BY: MODL DATE: 01/02/17 see her in the morning and evaluate her sacral and buttock decubitus ulcers. We will start her on IV fluids for volume resuscitation and check cortisol level. We will also check her blood sugar and place her on NovoLog insulin per sliding scale. We will check her A1c as well. She is on Eliquis, which we will continue at this time. Please see today's orders for all the details. I have discussed the above plans with the patient and her questions were answered in detail. She is agreeable to the above recommendations. Hospitalist Service will be following her during her stay here. /TOBY Gomez Sandhu M.D. / [id number] CC: MD Theo Beckford II, M.D.
[2017-01-02 20:02] LABS: BASOPHILS 0.1 %; BASOPHILS ABSOLUTE 0.01 10/3/uL (0.0-0.16); EOSINOPHILS 0.5 %; EOSINOPHILS ABSOLUTE 0.05 10/3/uL (0.0-0.53); HEMOGLOBIN 9.2 g/dL (12.0-16.0); IMMATURE GRANULOCYTES 0.2 %; IMMATURE GRANULOCYTES ABSOLUTE 0.02 10/3/uL (0.0-0.11); LYMPHOCYTES 13.5 %; LYMPHOCYTES ABSOLUTE 1.26 10/3/uL (0.67-4.30); MEAN PLATELET VOLUME 8.6 fL (9.2-13.0); MONOCYTES ABSOLUTE 1.02 10/3/uL (0.21-1.20); NEUTROPHILS 74.7 %; NEUTROPHILS ABSOLUTE 6.95 10/3/uL (2.02-8.40); PLATELET COUNT 445 10/3/uL (150-400); RBC DISTRIBUTION WIDTH 16.4 % (12.0-16.0)
[2017-01-02 20:03] LABS: ER CBC TAT 0 Hrs 14 Mins; HEMATOCRIT 27.9 % (36.0-48.0); MEAN CORPUSCULAR HEMOGLOB 30.5 pg (26.0-34.0); MEAN CORPUSCULAR VOLUME 92.4 fL (80-100); RED CELL COUNT 3.02 10/6/uL (4.0-5.6); WHITE BLOOD CELLS 9.3 10/3/uL (4.5-10.5)
[2017-01-02 20:04] LABS: MANUAL DIFF NO %
[2017-01-02 20:04] LABS: ASCORBIC ACID (UR NOT ORDER) NEG (NEG); BILIRUBIN, URINE NEGATIVE (NEG); ER URINALYSIS TAT 0 Hrs 10 Mins; KETONE, URINE NEGATIVE (NEG); LEUKOCYTE ESTERASE(NOT OR LARGE (NEG); NITRITE (URINE) NEG (NEG); WBC (NOT ORDERED) (RFLEX) 26 (0-5)
[2017-01-02 20:08] LABS: INFLUENZA A SCREEN NEGATIVE (NEGATIVE); INFLUENZA B SCREEN NEGATIVE (NEGATIVE)
[2017-01-02 20:11] LABS: A/G RATIO 0.4 (0.7-1.9); ALBUMIN 2.2 G/DL (3.5-5.0); ALKALINE PHOSPHATASE 114 U/L (45-117); BUN (BLOOD UREA NITROGEN) 18 MG/DL (6-23); CALCIUM, SERUM 8.9 MG/DL (8.5-10.4); CHLORIDE, SERUM 103 MMOL/L (96-112); CO2 (CARBON DIOXIDE) 28 MMOL/L (24-34); CREATININE 0.63 MG/DL (0.55-1.02); GFR AFRICAN AMERICAN 123 ML/MIN (>=60); GFR NON AFRICAN AMERICAN 106 ML/MIN (>=60); GLOBULIN 5.2 G/DL (2.5-4.1); GLUCOSE, SERUM 120 MG/DL (60-99); SGOT(AST) 17 U/L (5-40); SGPT(ALT) 14 U/L (5-65); SODIUM, SERUM 140 MMOL/L (135-148); TOTAL BILIRUBIN 0.3 MG/DL (0-1.2); TOTAL PROTEIN 7.4 G/DL (6.0-8.5)
[2017-01-02 20:12] LABS: LACTATE 1.6 MMOL/L (0.3-2.4)
[~2017-01-02 20:36] MED LIST changes: +ATV1 PO; +BACLOFEN20 MG PO; +CEFAZ1 IM; +DITROPAN XL10 MG PO; +GENTAMICIN IRRIG; +MUCINEX DM MAX PO; +NASONEX NAS; +NORCO1 TAB PO; +PRENAVITE PR PO; +TOF25 PO
[2017-01-02 22:14] LABS: PROCALCITONIN 0.05 ng/mL (<0.5)
[2017-01-03 06:16] LABS: BASOPHILS 0.1 %; BASOPHILS ABSOLUTE 0.01 10/3/uL (0.0-0.16); EOSINOPHILS 0.6 %; EOSINOPHILS ABSOLUTE 0.05 10/3/uL (0.0-0.53); HEMATOCRIT 27.9 % (36.0-48.0); HEMOGLOBIN 8.7 g/dL (12.0-16.0); IMMATURE GRANULOCYTES 0.3 %; IMMATURE GRANULOCYTES ABSOLUTE 0.02 10/3/uL (0.0-0.11); LYMPHOCYTES ABSOLUTE 0.77 10/3/uL (0.67-4.30); MEAN CORPUSCULAR HEMOGLOB 28.9 pg (26.0-34.0); MEAN CORPUSCULAR VOLUME 92.7 fL (80-100); MEAN PLATELET VOLUME 7.9 fL (9.2-13.0); MONOCYTES 10.9 %; MONOCYTES ABSOLUTE 0.84 10/3/uL (0.21-1.20); NEUTROPHILS 78.1 %; NEUTROPHILS ABSOLUTE 6.02 10/3/uL (2.02-8.40); PLATELET COUNT 319 10/3/uL (150-400); RBC DISTRIBUTION WIDTH 16.2 % (12.0-16.0); RED CELL COUNT 3.01 10/6/uL (4.0-5.6); WHITE BLOOD CELLS 7.7 10/3/uL (4.5-10.5)
[2017-01-03 06:20] LABS: MANUAL DIFF NO %; MEAN CORPUS HGB CONC 31.2 g/dL (32.0-36.0)
[2017-01-03 06:33] LABS: CALCIUM, SERUM 8.3 MG/DL (8.5-10.4); CHLORIDE, SERUM 113 MMOL/L (96-112); CO2 (CARBON DIOXIDE) 25 MMOL/L (24-34); CREATININE 0.44 MG/DL (0.55-1.02); GFR AFRICAN AMERICAN 138 ML/MIN (>=60); GFR NON AFRICAN AMERICAN 119 ML/MIN (>=60); GLUCOSE, SERUM 98 MG/DL (60-99); POTASSIUM, SERUM 3.4 MMOL/L (3.5-5.3); SODIUM, SERUM 145 MMOL/L (135-148)
[2017-01-03 06:36] LABS: BUN (BLOOD UREA NITROGEN) 13 MG/DL (6-23)
[2017-01-04 06:36] LABS: BASOPHILS 0.2 %; BASOPHILS ABSOLUTE 0.01 10/3/uL (0.0-0.16); EOSINOPHILS 0.9 %; EOSINOPHILS ABSOLUTE 0.06 10/3/uL (0.0-0.53); HEMATOCRIT 25.6 % (36.0-48.0); HEMOGLOBIN 8.1 g/dL (12.0-16.0); IMMATURE GRANULOCYTES 0.2 %; IMMATURE GRANULOCYTES ABSOLUTE 0.01 10/3/uL (0.0-0.11); LYMPHOCYTES 16.4 %; LYMPHOCYTES ABSOLUTE 1.07 10/3/uL (0.67-4.30); MEAN CORPUS HGB CONC 31.6 g/dL (32.0-36.0); MEAN CORPUSCULAR HEMOGLOB 29.1 pg (26.0-34.0); MEAN CORPUSCULAR VOLUME 92.1 fL (80-100); MEAN PLATELET VOLUME 8.1 fL (9.2-13.0); MONOCYTES 9.2 %; NEUTROPHILS 73.1 %; NEUTROPHILS ABSOLUTE 4.76 10/3/uL (2.02-8.40); PLATELET COUNT 348 10/3/uL (150-400); RBC DISTRIBUTION WIDTH 16.1 % (12.0-16.0); RED CELL COUNT 2.78 10/6/uL (4.0-5.6); WHITE BLOOD CELLS 6.5 10/3/uL (4.5-10.5)
[2017-01-04 06:39] LABS: MANUAL DIFF NO %
[2017-01-04 06:59] LABS: CALCIUM, SERUM 8.3 MG/DL (8.5-10.4); CHLORIDE, SERUM 109 MMOL/L (96-112); CO2 (CARBON DIOXIDE) 27 MMOL/L (24-34); CREATININE 0.58 MG/DL (0.55-1.02); FERRITIN 470 NG/ML (8-252); FREE T4 1.27 NG/DL (0.76-1.46); GFR AFRICAN AMERICAN 126 ML/MIN (>=60); GFR NON AFRICAN AMERICAN 109 ML/MIN (>=60); GLUCOSE, SERUM 107 MG/DL (60-99); IRON BINDING CAPACITY 130 MCG/DL (225-410); IRON, SERUM 18 MCG/DL (35-150); PHOSPHORUS, SERUM 2.4 MG/DL (2.5-4.5); POTASSIUM, SERUM 4.1 MMOL/L (3.5-5.3); PREALBUMIN 5.7 MG/DL (17.0-43.0); SODIUM, SERUM 143 MMOL/L (135-148); VANCOMYCIN TROUGH 12.8 MCG/ML (10.0-20.0)
[2017-01-04 07:00] LABS: BUN (BLOOD UREA NITROGEN) 7 MG/DL (6-23)
[2017-01-05 05:29] LABS: BASOPHILS 0.2 %; BASOPHILS ABSOLUTE 0.01 10/3/uL (0.0-0.16); EOSINOPHILS 1.1 %; EOSINOPHILS ABSOLUTE 0.05 10/3/uL (0.0-0.53); HEMATOCRIT 26.7 % (36.0-48.0); HEMOGLOBIN 8.4 g/dL (12.0-16.0); IMMATURE GRANULOCYTES 0.2 %; IMMATURE GRANULOCYTES ABSOLUTE 0.01 10/3/uL (0.0-0.11); LYMPHOCYTES 26.3 %; LYMPHOCYTES ABSOLUTE 1.15 10/3/uL (0.67-4.30); MEAN CORPUS HGB CONC 31.5 g/dL (32.0-36.0); MEAN CORPUSCULAR HEMOGLOB 28.7 pg (26.0-34.0); MEAN CORPUSCULAR VOLUME 91.1 fL (80-100); MEAN PLATELET VOLUME 8.2 fL (9.2-13.0); MONOCYTES 6.9 %; NEUTROPHILS 65.3 %; NEUTROPHILS ABSOLUTE 2.85 10/3/uL (2.02-8.40); PLATELET COUNT 359 10/3/uL (150-400); RBC DISTRIBUTION WIDTH 15.8 % (12.0-16.0); RED CELL COUNT 2.93 10/6/uL (4.0-5.6); WHITE BLOOD CELLS 4.4 10/3/uL (4.5-10.5)
[2017-01-05 05:33] LABS: MANUAL DIFF NO %
[2017-01-05 05:44] LABS: BUN (BLOOD UREA NITROGEN) 10 MG/DL (6-23); CALCIUM, SERUM 8.7 MG/DL (8.5-10.4); CHLORIDE, SERUM 108 MMOL/L (96-112); CO2 (CARBON DIOXIDE) 28 MMOL/L (24-34); CREATININE 0.52 MG/DL (0.55-1.02); GFR AFRICAN AMERICAN 131 ML/MIN (>=60); GFR NON AFRICAN AMERICAN 113 ML/MIN (>=60); GLUCOSE, SERUM 107 MG/DL (60-99); POTASSIUM, SERUM 3.9 MMOL/L (3.5-5.3); PREALBUMIN 6.6 MG/DL (17.0-43.0); SODIUM, SERUM 142 MMOL/L (135-148)
[2017-01-05 05:45] LABS: PHOSPHORUS, SERUM 3.4 MG/DL (2.5-4.5)
[2017-01-05 14:07] LABS: ASCORBIC ACID (UR NOT ORDER) NEG (NEG); BILIRUBIN, URINE NEGATIVE (NEG); KETONE, URINE NEGATIVE (NEG); LEUKOCYTE ESTERASE(NOT OR TRACE (NEG); WBC (NOT ORDERED) (RFLEX) 4 (0-5)
[2017-01-06 07:55] LABS: BASOPHILS 0.3 %; BASOPHILS ABSOLUTE 0.01 10/3/uL (0.0-0.16); EOSINOPHILS 1.9 %; EOSINOPHILS ABSOLUTE 0.06 10/3/uL (0.0-0.53); HEMATOCRIT 26.4 % (36.0-48.0); HEMOGLOBIN 8.4 g/dL (12.0-16.0); IMMATURE GRANULOCYTES 0.3 %; IMMATURE GRANULOCYTES ABSOLUTE 0.01 10/3/uL (0.0-0.11); LYMPHOCYTES 33.2 %; LYMPHOCYTES ABSOLUTE 1.05 10/3/uL (0.67-4.30); MEAN CORPUS HGB CONC 31.8 g/dL (32.0-36.0); MEAN PLATELET VOLUME 8.2 fL (9.2-13.0); MONOCYTES 7.3 %; MONOCYTES ABSOLUTE 0.23 10/3/uL (0.21-1.20); PLATELET COUNT 335 10/3/uL (150-400); RBC DISTRIBUTION WIDTH 15.7 % (12.0-16.0); WHITE BLOOD CELLS 3.2 10/3/uL (4.5-10.5)
[2017-01-06 07:58] LABS: MANUAL DIFF NO %
[2017-01-06 08:04] LABS: BUN (BLOOD UREA NITROGEN) 9 MG/DL (6-23); CALCIUM, SERUM 8.6 MG/DL (8.5-10.4); CHLORIDE, SERUM 110 MMOL/L (96-112); CO2 (CARBON DIOXIDE) 32 MMOL/L (24-34); CREATININE 0.44 MG/DL (0.55-1.02); GFR AFRICAN AMERICAN 138 ML/MIN (>=60); GFR NON AFRICAN AMERICAN 119 ML/MIN (>=60); GLUCOSE, SERUM 91 MG/DL (60-99); PHOSPHORUS, SERUM 3.6 MG/DL (2.5-4.5); SODIUM, SERUM 144 MMOL/L (135-148); VANCOMYCIN TROUGH 27.9 MCG/ML (10.0-20.0)
[2017-01-06 08:11] LABS: PREALBUMIN 8.6 MG/DL (17.0-43.0)
[2017-01-07 08:27] LABS: BASOPHILS 0.6 %; BASOPHILS ABSOLUTE 0.02 10/3/uL (0.0-0.16); EOSINOPHILS 1.9 %; EOSINOPHILS ABSOLUTE 0.06 10/3/uL (0.0-0.53); HEMATOCRIT 31.1 % (36.0-48.0); HEMOGLOBIN 9.4 g/dL (12.0-16.0); IMMATURE GRANULOCYTES 0.3 %; IMMATURE GRANULOCYTES ABSOLUTE 0.01 10/3/uL (0.0-0.11); LYMPHOCYTES 26.5 %; LYMPHOCYTES ABSOLUTE 0.82 10/3/uL (0.67-4.30); MANUAL DIFF NO %; MEAN CORPUS HGB CONC 30.2 g/dL (32.0-36.0); MEAN CORPUSCULAR HEMOGLOB 28.7 pg (26.0-34.0); MEAN CORPUSCULAR VOLUME 95.1 fL (80-100); MEAN PLATELET VOLUME 8.2 fL (9.2-13.0); MONOCYTES ABSOLUTE 0.28 10/3/uL (0.21-1.20); NEUTROPHILS 61.7 %; NEUTROPHILS ABSOLUTE 1.91 10/3/uL (2.02-8.40); PLATELET COUNT 382 10/3/uL (150-400); RBC DISTRIBUTION WIDTH 15.9 % (12.0-16.0); RED CELL COUNT 3.27 10/6/uL (4.0-5.6); WHITE BLOOD CELLS 3.1 10/3/uL (4.5-10.5)
[2017-01-07 08:35] LABS: BUN (BLOOD UREA NITROGEN) 12 MG/DL (6-23); CALCIUM, SERUM 8.9 MG/DL (8.5-10.4); CHLORIDE, SERUM 108 MMOL/L (96-112); CO2 (CARBON DIOXIDE) 30 MMOL/L (24-34); CREATININE 0.49 MG/DL (0.55-1.02); GFR AFRICAN AMERICAN 134 ML/MIN (>=60); GFR NON AFRICAN AMERICAN 115 ML/MIN (>=60); GLUCOSE, SERUM 83 MG/DL (60-99); PHOSPHORUS, SERUM 3.4 MG/DL (2.5-4.5); POTASSIUM, SERUM 4.2 MMOL/L (3.5-5.3); SODIUM, SERUM 142 MMOL/L (135-148)
[2017-01-07 08:44] LABS: PREALBUMIN 11.8 MG/DL (17.0-43.0)
[2017-01-07] MEDS ORDERED: MULTIPLE VIT PO (11:22)
[2017-01-07] MEDS ORDERED: SEPTRA DS1 TAB PO (11:23)
[2017-05-16] MEDS ORDERED: ENDOCET1 TA3 PO (12:19)
[2017-05-16] MEDS ORDERED: ENABLEX15 PO (12:20)
[2017-05-16] MEDS ORDERED: NASOCORT (12:21)
[2017-05-16] MEDS ORDERED: PROTONIX PO (12:22)
== END 2017-01-07 13:51 | disposition home health service (06) | DRG 673 ==
LOC: ER 20:36 → 5SO 23:36
PROVIDERS: Internal Medicine; Internal Medicine Infectious Disease; Internal Medicine Pulmonary Disease; Nurse Practitioner; Nurse Practitioner Acute Care
PROC: 0JBM0ZZ Excision of Left Upper Leg Subcutaneous Tissue and Fascia, Open Approach (ICD-10-PCS; principal; 2017-01-02)
PROC: 0JBL0ZZ Excision of Right Upper Leg Subcutaneous Tissue and Fascia, Open Approach (ICD-10-PCS; 2017-01-02)
PROC: 0JB70ZZ Excision of Back Subcutaneous Tissue and Fascia, Open Approach (ICD-10-PCS; 2017-01-02)
DX: T83.511A Infection and inflammatory reaction due to indwelling urethral catheter, initial encounter (principal); A41.9 Sepsis, unspecified organism; L89.224 Pressure ulcer of left hip, stage 4; L89.214 Pressure ulcer of right hip, stage 4; L89.154 Pressure ulcer of sacral region, stage 4; G82.20 Paraplegia, unspecified; G36.0 Neuromyelitis optica [Devic]; L97.121 Non-pressure chronic ulcer of left thigh limited to breakdown of skin; E11.9 Type 2 diabetes mellitus without complications; I10 Essential (primary) hypertension; B95.62 Methicillin resistant Staphylococcus aureus infection as the cause of diseases classified elsewhere; T83.021A Displacement of indwelling urethral catheter, initial encounter; N39.0 Urinary tract infection, site not specified; E03.9 Hypothyroidism, unspecified; M10.9 Gout, unspecified; D86.9 Sarcoidosis, unspecified; Z86.14 Personal history of Methicillin resistant Staphylococcus aureus infection; Z86.718 Personal history of other venous thrombosis and embolism; D63.8 Anemia in other chronic diseases classified elsewhere
CPT/HCPCS: 11043; 71010; 80048; 80053; 80202; 81001; 82533; 82728; 82962; 83036; 83540; 83550; 83605; 83735; 84100; 84132; 84134; 84145; 84439; 84443; 85025; 85652; 87040; 87070; 87077; 87086; 87184; 87186; 87205; 87804; 96361; 96374; 99285; A9270-GY; J0692; J2405; J2916; J3370; J7500

== ENCOUNTER 2017-02-01 06:11 | Day surgery (SDC) | payer BC ==
--- NOTE | ~2017-02-01 | OP ---
Record Of Operation [facility] [address] [place]. [address] NAME: JUAN FARIAS : 66 STATUS : REG [facility]#: [id number] AGE: 46 ADM/REG DATE : 02/01/17 MR#: [id number] REPORT SERV DATE: 02/01/17 DICTATED BY: FESTUS KAUFFMAN JR. DATE: 02/01/17 REPORT STATUS : Draft TRANSCRIBED BY: TOBY DATE: 02/01/17 DATE OF PROCEDURE: 02/01/2017 PREOPERATIVE DIAGNOSIS: Overactive bladder with urge incontinence and neurogenic bladder. POSTOPERATIVE DIAGNOSIS: Overactive bladder with urge incontinence and neurogenic bladder. PROCEDURES PERFORMED: Cystoscopy, injection of Botox 200 units, and placement of suprapubic tube. COMPLICATIONS: None. CONSULTATIONS: None. ANESTHESIA: General with laryngeal mask airway. SPECIMENS: None. DRAINS: 16-Lebanese suprapubic tube. ESTIMATED BLOOD LOSS: None. INDICATION: Ms Farias is a 46-year-old female, who has history of neurogenic bladder with instability and urinary incontinence. She had a suprapubic tube for quite some time and did reasonably well with it other than the occasional infection. The tube was malpositioned at one of her home changes, and had to be removed. She since that time, has had a Parsons catheter in place and has been having quite a bit of bladder spasm and incontinence around the catheter. This is complicated by the fact that she has severe decubitus ulcers which are difficult to heal, and along with the incontinence, this makes it even more difficult. PROCEDURE IN DETAIL: After the patient was identified, and proper informed consent was obtained, she was taken to the operating room. General anesthesia was performed without complication using a laryngeal mask airway. She was then prepped and draped in the normal sterile fashion in the lithotomy position. Cystoscopic examination was performed and revealed a moderate bladder capacity. Both ureteral orifices were in the normal position, normal size. There were no tumors, diverticula, or stones noted. Using the Botox injection needle, I injected 200 units of Botox mixed in 20 mL of injectable saline. Approximately 40 injections were performed along the posterior and posterolateral knight of the bladder and 0.5 mL increments in the submucosa of the bladder. Once I had completed this, I placed a Julia introducer through the abdominal wall through the dome of the bladder under direct vision with the cystoscope in place, and placed a 16-Lebanese Parsons catheter as a suprapubic tube placing 3 mL of sterile water in the balloon and suturing the suprapubic tube in place using a 2-0 silk suture. The patient was awakened in the operating room, transferred to the Postanesthesia Care Unit in stable condition. I will see her back in one month for her first suprapubic tube change. Record Of Operation [address] [place]. [address] NAME: JUAN FARIAS : 66 STATUS : REG [facility] PAT#: [id number] AGE: 46 ADM/REG DATE : 02/01/17 MR#: [id number] REPORT SERV DATE: 02/01/17 DICTATED BY: FESTUS KAUFFMAN JR. DATE: 02/01/17 REPORT STATUS : Draft TRANSCRIBED BY: TOBY DATE: 02/01/17 MATTHEW/TOBY Festus Kauffman Jr., M.D. / [id number] CC: Marlon Eckert Jr., II, M.D.
[~2017-02-01 06:11] MED LIST changes: +MULTIPLE VIT PO; +SEPTRA DS1 TAB PO
[2017-02-01 06:43] LABS: HEMATOCRIT 35.9 % (36.0-48.0)
[2017-02-01 06:56] LABS: BUN (BLOOD UREA NITROGEN) 16 MG/DL (6-23); CALCIUM, SERUM 8.9 MG/DL (8.5-10.4); CHLORIDE, SERUM 107 MMOL/L (96-112); CO2 (CARBON DIOXIDE) 30 MMOL/L (24-34); CREATININE 0.65 MG/DL (0.55-1.02); GFR AFRICAN AMERICAN 122 ML/MIN (>=60); GFR NON AFRICAN AMERICAN 105 ML/MIN (>=60); GLUCOSE, SERUM 108 MG/DL (60-99); POTASSIUM, SERUM 3.7 MMOL/L (3.5-5.3); SODIUM, SERUM 142 MMOL/L (135-148)
[2017-05-16] MEDS ORDERED: ENDOCET1 TA3 PO (12:19)
[2017-05-16] MEDS ORDERED: ENABLEX15 PO (12:20)
[2017-05-16] MEDS ORDERED: NASOCORT (12:21)
[2017-05-16] MEDS ORDERED: PROTONIX PO (12:22)
== END 2017-02-01 12:42 | disposition home or self-care (01) ==
LOC: SDC 06:11
PROVIDERS: Urology
PROC: 0T9B30Z Drainage of Bladder with Drainage Device, Percutaneous Approach (ICD-10-PCS; 2017-02-01)
PROC: 3E0K8GC Introduction of Other Therapeutic Substance into Genitourinary Tract, Via Natural or Artificial Opening Endoscopic (ICD-10-PCS; principal; 2017-02-01 07:45)
DX: N32.81 Overactive bladder (principal); N31.9 Neuromuscular dysfunction of bladder, unspecified; N39.41 Urge incontinence; G82.20 Paraplegia, unspecified; G37.3 Acute transverse myelitis in demyelinating disease of central nervous system; E11.40 Type 2 diabetes mellitus with diabetic neuropathy, unspecified; D86.0 Sarcoidosis of lung; K21.9 Gastro-esophageal reflux disease without esophagitis; Z88.5 Allergy status to narcotic agent; E03.9 Hypothyroidism, unspecified; F41.9 Anxiety disorder, unspecified; M19.90 Unspecified osteoarthritis, unspecified site; Z86.718 Personal history of other venous thrombosis and embolism; Z86.14 Personal history of Methicillin resistant Staphylococcus aureus infection; Z90.89 Acquired absence of other organs; Z90.49 Acquired absence of other specified parts of digestive tract; Z98.1 Arthrodesis status; Z98.51 Tubal ligation status; Z79.02 Long term (current) use of antithrombotics/antiplatelets; Z79.899 Other long term (current) drug therapy; Z98.890 Other specified postprocedural states
CPT/HCPCS: 80048; 82962; 84703; 85014; 85018; J0585; J2250; J2370; J2405; J3010